=== PATIENT | female | born 1955 | race Asian ===

== ENCOUNTER 2017-02-13 09:28 | Outpatient (CLI) | payer BC | END 2017-02-13 19:49 | disposition home or self-care (01) | LOC: MAMMO 09:28 | DX: Z12.31 Encounter for screening mammogram for malignant neoplasm of breast (principal) | CPT/HCPCS: G0202-TC ==

== ENCOUNTER 2020-12-07 07:52 | Outpatient (CLI) | payer OTHER | END 2020-12-07 20:03 | disposition home or self-care (01) | LOC: RAD 07:52 | PROVIDERS: ATTEND Internal Medicine Rheumatology | DX: M06.09 Rheumatoid arthritis without rheumatoid factor, multiple sites (principal) ==

== ENCOUNTER 2022-08-16 14:01 | Outpatient (CLI) | payer OTHER | END 2022-08-16 20:34 | disposition home or self-care (01) | LOC: RAD 14:01 | PROVIDERS: ATTEND Nurse Practitioner Family | DX: Z13.820 Encounter for screening for osteoporosis (principal); N95.8 Other specified menopausal and perimenopausal disorders ==

== ENCOUNTER 2023-02-12 09:56 | Outpatient (CLI) | payer OTHER | END 2023-02-12 19:03 | disposition home or self-care (01) | LOC: MAMMO 09:56 | PROVIDERS: ATTEND Nurse Practitioner Family | DX: Z12.31 Encounter for screening mammogram for malignant neoplasm of breast (principal) ==